=== PATIENT | female | born 1970 | race Caucasian/White ===

== ENCOUNTER 2022-01-25 08:59 | Emergency (ER) | payer SELFPAY ==
[2022-01-25] VITALS (8 sets, daily range): BP systolic 140–177; BP diastolic 79–99
[~2022-01-25] VITALS: Ht 175.3 cm; Wt 81.8 kg
[2022-01-25] MEDS ORDERED: METOPROL TAR25 MG PO (09:19)
[2022-01-25] MEDS ORDERED: NORVASC5 M1 PO (09:21)
[2022-01-25] MEDS ORDERED: LISINOPRIL10 MG PO (09:21)
[2022-01-25] MEDS ORDERED: FLEXERIL5 M1 PO (13:54)
[2022-01-25] MEDS ORDERED: TRAMADOL HYDROC50 M1 PO (13:55)
[2022-01-25] MEDS ORDERED: ZOFRAN4 MG/TAB PO (13:55)
== END 2022-01-25 14:18 | disposition home or self-care (01) | DRG 552 ==
LOC: ED 08:59
DX: M54.50 Low back pain, unspecified (principal); I10 Essential (primary) hypertension; F17.210 Nicotine dependence, cigarettes, uncomplicated